=== PATIENT | male | born 1955 | race Caucasian/White ===

== ENCOUNTER 2017-07-24 19:17 | Emergency (ER) | payer MEDICAID, MEDICARE, OTHER ==
[~2017-07-24] VITALS: Ht 175.3 cm; Wt 86.4 kg
[~2017-07-24 19:17] MED LIST: NO HOME MEDS
[2017-07-24] MEDS ORDERED: normal saline 1000ml 1,000 ML IV ONE (20:15)
[2017-07-24] MEDS ORDERED: insulin regular, human 10 units/0.1 ml syringe SQ ONE (20:15)
[2017-07-24] MEDS ORDERED: INSU100I25 SQ (20:16)
[2017-07-24] MEDS ORDERED: GABA-532 PO (20:16)
[2017-07-24 21:12] VITALS: BP 117/65
== END 2017-07-24 21:15 ==
LOC: EEVIPCON 19:17 → ER 19:17
DX: E11.65 Type 2 diabetes mellitus with hyperglycemia (principal); E03.9 Hypothyroidism, unspecified; F20.9 Schizophrenia, unspecified; F32.9 Major depressive disorder, single episode, unspecified; F41.9 Anxiety disorder, unspecified; G89.29 Other chronic pain; K21.9 Gastro-esophageal reflux disease without esophagitis; Z91.14 Patient's other noncompliance with medication regimen; Z59.0 Homelessness; Z86.19 Personal history of other infectious and parasitic diseases; Z79.4 Long term (current) use of insulin
CPT/HCPCS: 82948; 96372; 99284; J1815; J7030

== ENCOUNTER 2019-10-19 22:46 | Emergency (ER) | payer MEDICAID, MEDICARE, OTHER ==
[~2019-10-19] VITALS: Ht 175.3 cm; Wt 81.8 kg
[~2019-10-19 22:46] MED LIST changes: +GABA-532 PO; +INSU100I25 SQ
[2019-10-20 00:21] LABS: BASOPHILS % (AUTO) 0.5 % (0-1); EOSINOPHILS # (AUTO) 0.1 X10'3 (0-0.9); HEMATOCRIT 37.2 % (42.0-52.0); HEMOGLOBIN 12.7 g/dl (14.0-17.9); LYMPHOCYTES # (AUTO) 1.9 X10'3 (1.1-4.8); MEAN CORPUSCULAR HEMOGLOBIN 31.4 PG (27.0-31.0); MEAN CORPUSCULAR HGB CONC 34.1 g/dL (33.0-36.5); MEAN CORPUSCULAR VOLUME 92.1 FL (78-98); MEAN PLATELET VOLUME 7.6 FL (7.4-10.4); MONOCYTES # (AUTO) 0.5 X10'3 (0-0.9); MONOCYTES % (AUTO) 9.6 % (2-12); NEUTROPHILS # (AUTO) 3.1 X10'3 (1.8-7.7); NEUTROPHILS % (AUTO) 54.9 % (42-75); PLATELET COUNT 194 X10'3 (140-440); RED BLOOD COUNT 4.04 X10'6 (4.70-6.10); RED CELL DISTRIBUTION WIDTH 13.5 % (11.5-14.5); WHITE BLOOD COUNT 5.6 X10'3 (4.5-11.0)
--- NOTE | 2019-10-20 00:26 | NUR ---
labs drawn. he requests to have his blood type checked. states "I need to know to figure out my certificate". I reported to him this test would only be done if it pertains to his chief complaint today and if provider thinks it is necessary. Pt fixated on this request and states he will speak to the Provider about it. HR 55-60, SB.
[2019-10-20 00:33] LABS: ALANINE AMINOTRANSFERASE 35 U/L (12-78); ALBUMIN 3.5 G/DL (3.4-5.0); ALKALINE PHOSPHATASE 66 IU/L (46-116); ANION GAP 5 (8-16); ASPARTATE AMINO TRANSFERASE 27 U/L (10-37); BILIRUBIN,TOTAL 0.5 MG/DL (0.1-1.0); BLOOD UREA NITROGEN 24 MG/DL (7-18); BUN/CREATININE RATIO 26.4 (5.4-32.0); CALCIUM 9.2 MG/DL (8.5-10.1); CHLORIDE 105 MMOL/L (99-107); CREATININE 0.91 MG/DL (0.60-1.10); GLUCOSE 211 MG/DL (70-104); POTASSIUM 3.5 MMOL/L (3.5-5.1); SODIUM 139 MMOL/L (135-145); TOTAL CARBON DIOXIDE 28.8 MMOL/L (24-32); TOTAL PROTEIN 7.1 G/DL (6.4-8.2); eGFR 84 ML/MIN
[2019-10-20 01:15] VITALS: BP 126/69
== END 2019-10-20 01:17 | disposition home or self-care (01) ==
LOC: ER 22:46
DX: R42 Dizziness and giddiness (principal); K21.9 Gastro-esophageal reflux disease without esophagitis; E11.9 Type 2 diabetes mellitus without complications; E03.9 Hypothyroidism, unspecified; G89.29 Other chronic pain; F41.9 Anxiety disorder, unspecified; F32.9 Major depressive disorder, single episode, unspecified; F20.9 Schizophrenia, unspecified; F12.90 Cannabis use, unspecified, uncomplicated; Z98.890 Other specified postprocedural states; Z86.19 Personal history of other infectious and parasitic diseases; Z56.0 Unemployment, unspecified; Z79.4 Long term (current) use of insulin; Z79.899 Other long term (current) drug therapy
CPT/HCPCS: 36415; 80053; 82948; 85025; 93005; 99284

== ENCOUNTER 2022-02-16 05:28 | Emergency (ER) | payer MEDICARE ==
[~2022-02-16] VITALS: Ht 172.7 cm; Wt 81.8 kg
[2022-02-16 05:34] VITALS: BP 126/83
== END 2022-02-16 07:05 | disposition home or self-care (01) ==
LOC: ER 05:30
DX: Z00.00 Encounter for general adult medical examination without abnormal findings (principal); K21.9 Gastro-esophageal reflux disease without esophagitis; E11.9 Type 2 diabetes mellitus without complications; E03.9 Hypothyroidism, unspecified; G89.29 Other chronic pain; F12.90 Cannabis use, unspecified, uncomplicated; Z88.8 Allergy status to other drugs, medicaments and biological substances; Z56.0 Unemployment, unspecified
CPT/HCPCS: 93005; 99284